=== PATIENT | female | born 1995 ===

== ENCOUNTER 2020-12-26 20:32 | Observation (INO) | payer OTHER ==
[2020-12-26] MEDS ORDERED: LACTATED RINGERS 500 ML IV ONE (21:38)
[2020-12-26] MEDS ORDERED: ePHEDrine SULFATE 50 MG/1 ML INJ IV PRN (21:54)
[2020-12-26] MEDS ORDERED: LIDOCAINE (2%) 20 MG/1 ML VIAL 20 ML MDV INFILTRATI ONE (21:54)
[2020-12-26] MEDS ORDERED: ONDANSETRON 4 MG/2 ML INJ IV PRN (21:54)
[2020-12-26] MEDS ORDERED: MINERAL OIL 30 ML ORAL LIQD PO PRN (21:54)
[2020-12-26] MEDS ORDERED: NALOXONE 0.4 MG/1 ML INJ IV PRN (21:54)
[2020-12-26] MEDS ORDERED: TERBUTALINE 1 MG/1 ML INJ SUB-Q PRN (21:54)
[2020-12-26] MEDS ORDERED: PROMETHAZINE 25 MG TAB PO PRN (21:54)
[2020-12-26] MEDS ORDERED: LACTATED RINGERS 1,000 ML IV SCH (22:00)
[2020-12-26] MEDS ORDERED: miSOPROStol 100 MCG TAB VG SCH (22:00)
[2020-12-26] MEDS ORDERED: OXYTOCIN DRIP 30 UNITS/500 ML BAG IV SCH ×2 (22:00)
[2020-12-26] MEDS ORDERED: MAGNESIUM SULFATE 40GM/1000ML 40 GM/1,000 ML BAG IV ONE (22:07)
[2020-12-26] MEDS ORDERED: MAGNESIUM SULFATE 4 GM/100 ML BAG IV ONE ×2 (22:07→22:28)
--- NOTE | 2020-12-26 22:13 | History and Physical Report ---
History of Present Illness Date of examination: 12/26/20 Chief complaint: pt here for lower abdominal pain that started earlier today at 3pm History of present illness: at 25.5wks by dates, EDC 04/05/21. care at [facility]. Pt states that she was seen at [facility] today and was notified of no FHR and was told to follow up with her clinic in the AM. Pt states that her pelvic pain was too great hence she came to the hospital instead. Pt states that she has not felt movement today, denies vaginal bleeding or leakage of fluid. Pt admits to nausea and vomited while in triage with me present at bedside. Pt also admits to headache that started today. Pt is only taking vitamins. FOB present in room at her bedside. Past History Past Medical History: other (Ovarian tumor 46cm diagnosed at 14yrs old) Past Surgical History: other (midline incision extending above umbilicus for removal of large ovarian tumor which pt states was benign. No records available) Family/Genetic History: none Social history: no significant social history - Obstetrical History : 1 Para: 0 Number of Living Children: 0 Medications and Allergies Allergies Allergy/AdvReac Type Severity Reaction Status Date / Time No Known Allergies Allergy Unverified 12/26/20 21:06 Home Medications Medication Instructions Recorded Confirmed Last Taken Type No Known Home Medications [No 12/26/20 12/26/20 Unknown History Reported Home Medications] Active Meds: Active Medications Ephedrine Sulfate (Ephedrine Sulfate 50 Mg/1 Ml Inj) 10 mg IV Q2M PRN PRN Reason: Hypotension Oxytocin/Sodium Chloride (Pitocin/Ns 30 Unit/500ml) 30 units in 500 mls @ 2 mls/hr IV TITR CALOS; Protocol Lactated Ringer's (Lactated Ringers) 1,000 mls @ 125 mls/hr IV DIRECT CALOS Oxytocin/Sodium Chloride (Pitocin/Ns 30 Unit/500ml) 30 units in 500 mls @ 40 mls/hr IV TITR CALOS; Protocol Mineral Oil (Mineral Oil 30 Ml Oral Liqd) 30 ml PO QHS PRN PRN Reason: Constipation Misoprostol (Misoprostol 100 Mcg Tab) 100 mcg VG Q6H CALOS Stop: 12/27/20 16:01 Nalbuphine HCl (Nalbuphine 10 Mg/1 Ml Inj) 10 mg IV Q2H PRN PRN Reason: Pain, Moderate (4-6) Naloxone HCl (Naloxone 0.4 Mg/1 Ml Inj) 0.1 mg IV Q2MIN PRN PRN Reason: Res Rate </= 8 or 02 SAT < 92% Ondansetron HCl (Ondansetron 4 Mg/2 Ml Inj) 4 mg IV Q8H PRN PRN Reason: Nausea And Vomiting Promethazine HCl (Promethazine 25 Mg Tab) 25 mg PO Q6H PRN PRN Reason: Nausea And Vomiting Terbutaline Sulfate (Terbutaline 1 Mg/1 Ml Inj) 0.25 mg SUB-Q ONCE PRN PRN Reason: Hyperstimulation/Hypertonicity Review of Systems All systems: negative (headache and pelvic pain and no movement since one day ago) - Vital Signs Vital signs: Vital Signs Temp Pulse Resp BP 98.7 F 80 18 165/103 12/26/20 21:15 12/26/20 21:15 12/26/20 21:15 12/26/20 21:15 Temp Pulse Resp BP Pulse Ox 98.7 F 80 18 165/103 12/26/20 21:15 12/26/20 21:37 12/26/20 21:15 12/26/20 21:37 - Physical Exam Breasts: Positive: deferred Cardiovascular: Regular rate Lungs: Positive: Normal air movement Abdomen: Positive: normal appearance, soft Genitourinary (Female): Positive: normal external genitalia Vulva: both: normal Uterus: Positive: other (gravid, non-tender) Anus/Rectum: Positive: normal perianal skin Extremities: Positive: normal Deep Tendon Reflex Grade: Normal +2 - Obstetrical FHR: other (no FHR confirmed here in triage) Uterine Contraction Monitor Mode: External Cervical Dilatation: 1.5 Cervical Effacement Percentage: 80 station: -3 Uterine Contraction Pattern: Irregular Uterine Contraction Intensity: Moderate Results Result Diagrams: 12/26/20 22:00 12/26/20 22:00 All other labs normal. Assessment and Plan IUP at 25.5wks with demise, unknown cause. Now with severe preeclampsia 1. Admit to labor and delivery and give mag sulfate for seizure prophylaxis 2. U/S confirmed demise and obtain gest age since no records available 3. Do all walk in labs, TORCH panel, hgb A1c, TSH, PIH labs 4. Obtain records from [facility] in the am 5. Discussed plan of care for delivery with cytotec 100mcg per vagina when pt contractions decrease; if cervical change then I would give pitocin 6. May have IV pain or epidural for pain relief per pt choice Emotional support given. Family to decide on whether they want feal autopsy done post delivery. Expect All questions encouraged and answered
--- NOTE | 2020-12-26 22:45 | Ultrasound Report ---
ULTRASOUND OBSTETRIC LIMITED INDICATION / CLINICAL INFORMATION: heart tones. Clinical Gestational Age (GA) in weeks, days: 25, 5 TECHNIQUE: Transabdominal. COMPARISON: None available. FINDINGS: HEART RATE (beats per minute): No cardiac activity identified on either color Doppler or M-mode. AMNIOTIC FLUID INDEX (cm) = not calculated. (normal = 7-24 cm) PRESENTATION: Transverse. ADDITIONAL FINDINGS: None. IMPRESSION: 1. No cardiac activity. Signer Name: Fran Yung MD Signed: 12/26/2020 10:40 PM Workstation Name: [id number]
[2020-12-26 22:48] LABS: Hematocrit 34.4 % (30.3-42.9); Hemoglobin 11.8 gm/dl (10.1-14.3); Mean Corpuscular HGB Conc 34 % (30-34); Mean Corpuscular Volume 93 fl (79-97); Platelet Count 221 K/mm3 (140-440); Red Blood Count 3.69 M/mm3 (3.65-5.03); Red Cell Distribution Width 15.3 % (13.2-15.2)
[2020-12-26 22:57] LABS: Amphetamine Screen,Urine Negative; Benzodiazepines Screen,Urine Negative; Cannabinoid Screen,Urine Negative; Cocaine Screen,Urine Negative; Methadone Screen,Urine Negative; Opiate Screen,Urine Negative
[2020-12-26] MEDS ORDERED: MAGNESIUM SULFATE 40GM/1000ML 40 GM/1,000 ML BAG IV SCH (23:00)
[2020-12-26] MEDS: NalbUPHINE 10 MG/1 ML INJ IV PRN (23:20)
[2020-12-26 23:22] LABS: Alanine Aminotransferase 13 units/L (7-56); Albumin 3.7 g/dL (3.9-5); Blood Urea Nitrogen 6 mg/dL (7-17); Hemolysis Index 35; Uric Acid 5.1 mg/dL (3.5-7.6)
[2020-12-26 23:24] LABS: BUN/Creatinine Ratio 12
[2020-12-27] MEDS ORDERED: miSOPROStol 200 MCG TAB PR ONE (03:00)
[2020-12-27] MEDS ORDERED: miSOPROStol 200 MCG TAB ONE (03:01)
--- NOTE | 2020-12-27 03:11 | Ultrasound Report ---
ULTRASOUND OBSTETRIC INDICATION / CLINICAL INFORMATION: EFW. No cardiac activity on prior study. Clinical Gestational Age (GA) in weeks, days: 25, 6 TECHNIQUE: Transabdominal. COMPARISON: Ultrasound dated 12/26/20 FINDINGS: Single intrauterine . Biparietal Diameter = 5.8 cm = 23, 6 weeks, days Head Circumference = 20.2 cm = 22, 2 weeks, days Abdominal Circumference = 16.9 cm = 21, 6 weeks, days Femur Length = 3.3 cm = 20, 2 weeks, days Average Ultrasound Age (AUA) = 22, 1 weeks, days Heart Rate: No cardiac activity Estimated Weight in grams (if calculated): 420 Estimated Weight Growth Percentile (if calculated): Not calculated Position: transverse. Cervix: closed. Length in cm (if measured): Not measured Placenta: posterior and free of the os. Amniotic Fluid Volume: normal Amniotic Fluid Index (LUCRETIA) in cm (if calculated): Not calculated. Maternal Adnexa: Not visualized IMPRESSION: 1. Intrauterine demise with estimated weight of 420 g. Signer Name: Fran Yung MD Signed: 12/27/2020 3:07 AM Workstation Name: [id number]
[2020-12-27] MEDS: NalbUPHINE 10 MG/1 ML INJ IV PRN (03:18)
--- NOTE | 2020-12-27 03:38 | Procedure Note ---
OB Delivery Note - Delivery Date of Delivery: 12/27/20 Surgeon: NIKKI CAIN Estimated blood loss: other (400cc) - Vaginal Delivery presentation: breech (David breech with amniotic sac intact attached to placenta that was torn and ) Intrapartum events: abruption, preeclampsia, other(please specify) (no records available and U/S with demise in triage, transverse lie) Delivery induction: none Delivery monitor: external uterine Route of delivery: Delivery placenta: spontaneous (torn and irregularly shaped with large clot) Episiotomy: none Delivery laceration: none Anesthesia: none, other (IV pain med with nubain) Delivery comments: Nurse called me to bedside when pt complete. Bulging sac noted at introitus and pt pushed intact sac with david breech female fetus, appears grossly normal still attached to placenta that had large clot and area torn. Sustained no lacerations. Bimanual done and lower uterine segment cleared or additional clots, EBL 400cc and BP now normal. IV magnesium sulfate stopped during delivery and will observe pt . Will also repeat u/sound to determine if any retained placenta with irregular shaped placenta with abruption noted. Placenta sent to pathology. Wt of fetus was 523g and APGARS 0/0 consistent with demise. Pt given ancef 2gm IVPB after removal of additional clots lower uterine segment and mild leucocytosis present on admission. - A at 1 minute: 0 at 5 minutes: 0 Gender: Female (wt 523g)
--- NOTE | 2020-12-27 07:41 | Ultrasound Report ---
ULTRASOUND PELVIC LIMITED HISTORY: Check for products of conception, delivered demise on 12/27/2020. COMPARISON: 12/26/2020, 12/27/2020. TECHNIQUE: Transabdominal ultrasound with color Doppler imaging. FINDINGS: A mildly enlarged anteverted uterus is identified. No uterine mass is detected. The endome trial stripe is homogeneous and measures 8.9 mm. No hyperemia on color Doppler interrogation. IMPRESSION: No evidence for retained products of conception. Signer Name: Albert Kern Jr, MD Signed: 12/27/2020 7:36 AM Workstation Name: [id number]
[2020-12-27] MEDS ORDERED: oxyCODONE /ACETAMINOPHEN 5-325MG TAB PO PRN (10:00)
[2020-12-27] MEDS ORDERED: ONDANSETRON 4 MG/2 ML INJ IV PRN (10:00)
[2020-12-27] MEDS ORDERED: WITCH HAZEL/ GLYCERIN PAD TP PRN (10:00)
[2020-12-27] MEDS ORDERED: LANOLIN/ZINC/DIMETHICONE (LANSINOH) 7 GM TP PRN (10:00)
[2020-12-27] MEDS ORDERED: PROMETHAZINE 25 MG RECT SUPP PR PRN (10:00)
[2020-12-27] MEDS ORDERED: PROMETHAZINE 25 MG TAB PO PRN (10:00)
[2020-12-27] MEDS ORDERED: MAGNESIUM HYDROXIDE (MOM) ORAL LIQD UDC PO PRN (10:00)
[2020-12-27] MEDS ORDERED: diphenhydrAMINE 25 MG CAP PO PRN (10:00)
[2020-12-27] MEDS: IBUPROFEN 600 MG TAB PO SCH ×2 (10:33→16:00)
--- NOTE | 2020-12-27 14:50 | Discharge Summary ---
Providers - Providers Date of Admission: 12/26/20 21:54 Date of discharge: 12/28/20 Attending physician: NIKKI CAIN Primary care physician: NIKKI CAIN Hospitalization Reason for admission: labor Delivery: other ( demise) Episiotomy: none Laceration: none Other procedures: none complications: none Discharge diagnosis: intrapartum demise Hospital course: See admission H&P; OB delivery summary and PP progress notes Condition at discharge: Stable Disposition: DC-01 TO HOME OR SELFCARE - Discharge Diagnoses (1) IUFD at 20 weeks or more of gestation Status: Acute Plan - Provider Discharge Summary Activity: routine, no sex for 6 weeks, no heavy lifting 4 weeks, no strenuous exercise Diet: other (Iron rich diet) Instructions: routine Additional instructions: [] Smoking cessation referral if applicable(refer to patient education folder for contact #) [] Refer to [facility]'s [facility] Booklet Call your doctor immediately for: * Fever > 100.5 * Heavy vaginal bleeding ( >1 pad per hour) * Severe persistent headache * Shortness of breath * Reddened, hot, painful area to leg or breast * Drainage or odor from incision. * Keep incision clean and dry at all times and follow doctor's instructions regarding bathing/showering - Follow up plan Follow up: NIKKI CAIN MD [Primary Care Provider] - 6 Weeks
[2020-12-28] MEDS: IBUPROFEN 600 MG TAB PO SCH (00:37)
[2020-12-28 06:45] LABS: Basophils % (Auto) 0.4 % (0.0-1.8); Eosinophils # (Auto) 0.2 K/mm3 (0.0-0.4); Eosinophils % (Auto) 2.1 % (0.0-4.3); Hematocrit 30.4 % (30.3-42.9); Hemoglobin 10.4 gm/dl (10.1-14.3); Lymphocytes # (Auto) 3.3 K/mm3 (1.2-5.4); Lymphocytes % (Auto) 28.6 % (13.4-35.0); Mean Corpuscular HGB Conc 34 % (30-34); Mean Corpuscular Volume 94 fl (79-97); Monocytes # (Auto) 0.9 K/mm3 (0.0-0.8); Monocytes % (Auto) 7.6 % (0.0-7.3); Platelet Count 186 K/mm3 (140-440); Red Blood Count 3.25 M/mm3 (3.65-5.03); Red Cell Distribution Width 15.9 % (13.2-15.2)
[2020-12-28 10:01] VITALS: BP 111/72
== END 2020-12-28 10:30 | disposition home or self-care (01) ==
LOC: TRG 20:32 → APU 20:34 → TRG 21:54 → LD 21:54 → OB 12-27 09:27
PROVIDERS: ADMIT Obstetrics & Gynecology; ATTEND Obstetrics & Gynecology
DX: O36.4XX0 Maternal care for intrauterine death, not applicable or unspecified (principal); Z20.822 Contact with and (suspected) exposure to COVID-19; Z3A.20 20 weeks gestation of pregnancy; Z37.1 Single stillbirth; Z98.890 Other specified postprocedural states
CPT/HCPCS: 36415; 59409; 76815; 76816; 76857; 80053; 80307; 83036; 83615; 84443; 84550; 85014; 85018; 85025; 85027; 86592; 86644; 86645; 86762; 86777; 86778; 86850; 86900; 86901; 88305; 96365; 96366; 96368; 96375; 96376; G0378; J0690; J2300; J2590; J3475; J7120; U0003; J2405